=== PATIENT | female | born 1985 | race Asian ===

== ENCOUNTER → 2016-05-07 | Outpatient (CLI) | payer OTHER ==
--- NOTE | 2016-05-07 13:43 | KCIC ---
Examination: Two views of the chest. HISTORY History of history of tuberculosis, shortness of breath, chest pain for 2 years. COMPARISON None available FINDINGS The cardiomediastinal silhouette grossly appears unremarkable. There is no acute infiltrate or visualized pneumothorax identified. Impression: No acute cardiopulmonary findings. Electronically signed by: Renny Mac (May 07, 2016 13:42:28)
== END | disposition home or self-care (01) ==
LOC: KCIC 10:03
PROVIDERS: ATTEND Family Medicine
DX: A15.9 Respiratory tuberculosis unspecified (principal)
CPT/HCPCS: 71020